=== PATIENT | male | born 1995 | race Hispanic/Latino ===

== ENCOUNTER 2018-03-06 07:45 | Outpatient (CLI) | payer OTHER ==
--- NOTE | 2018-03-06 10:34 | ULT ---
HEPATIC ULTRASOUND: HISTORY: Elevated LFTs. TECHNIQUE: Real-time imaging of the upper abdomen was performed. FINDINGS: This shows a slightly contracted appearance to the gallbladder. No gallstones are identified, or gal lbladder wall thickening. The technologist reports a negative ultrasound Ingram sign. The common du ct is 3 mm. The visualized liver parenchyma shows a very coarse, echogenic texture. It measures 18. 3 cm in length. The spleen is 9 cm. The right kidney is normal in size and not obstructed. On Doppler evaluation with spectral analysis, there is a normal flow pattern shown within the liver. IMPRESSION: Fatty change of the liver. The liver is upper limits of normal in size. POS: [facility]
== END 2018-03-06 07:46 | disposition home or self-care (01) ==
LOC: BICULT 07:45
PROVIDERS: ATTEND Internal Medicine Gastroenterology
DX: K76.0 Fatty (change of) liver, not elsewhere classified (principal)
CPT/HCPCS: 76705

== ENCOUNTER 2021-09-20 09:19 | Outpatient (CLI) | payer OTHER | END 2021-09-20 09:20 | disposition home or self-care (01) | LOC: CT 09:19 | PROVIDERS: ATTEND Internal Medicine Cardiovascular Disease | DX: Q23.1 Congenital insufficiency of aortic valve (principal); K76.0 Fatty (change of) liver, not elsewhere classified | CPT/HCPCS: 71275 ==

== ENCOUNTER 2022-10-24 19:00 | Outpatient (CLI) | payer OTHER | END 2022-10-24 19:01 | disposition home or self-care (01) | LOC: SLEEPLAB 19:00 | PROVIDERS: ATTEND Family Medicine | DX: G47.33 Obstructive sleep apnea (adult) (pediatric) (principal); R53.83 Other fatigue; E55.9 Vitamin D deficiency, unspecified; Q90.9 Down syndrome, unspecified; E66.9 Obesity, unspecified; Z68.36 Body mass index [BMI] 36.0-36.9, adult; R06.83 Snoring | CPT/HCPCS: 95810 ==

== ENCOUNTER 2022-12-09 19:00 | Outpatient (CLI) | payer OTHER | END 2022-12-09 19:01 | disposition home or self-care (01) | LOC: SLEEPLAB 19:00 | PROVIDERS: ATTEND Family Medicine | DX: G47.33 Obstructive sleep apnea (adult) (pediatric) (principal); E66.9 Obesity, unspecified; R06.83 Snoring; R53.83 Other fatigue | CPT/HCPCS: 95811 ==